=== PATIENT | female | born 1975 | race Caucasian/White ===

== ENCOUNTER 2016-09-29 11:40 | Emergency (ER) | payer OTHER ==
[~2016-09-29] VITALS: Ht 162.6 cm; Wt 52.6 kg
--- NOTE | ~2016-09-29 | EKG ---
PATIENT: MAYITO LOUIS UNIT #: [id number] Ventricular Rate: 215 BPM Atrial Rate: 208 BPM QRS Duration: 72 ms Q-T Interval: 218 ms QTC Calculation(Bezet): 412 ms Calculated R [place]: 105 degrees Calculated T [place]: 6 degrees Diagnosis Line: Supraventricular tachycardia Diagnosis Line: Rightward axis Diagnosis Line: Borderline ECG Diagnosis Line: When compared with ECG of 23-JAN-2016 16:23, Diagnosis Line: Vent. rate has increased BY 128 BPM Diagnosis Line: T wave amplitude has increased in Anterior leads Diagnosis Line: Confirmed by SHAMA MULLINS MD ([id number]) on 09/29/2016 Diagnosis Line: 7:47:18 PM INTERPRETING MD: SUSANNA LARSON
--- NOTE | ~2016-09-29 | HP ---
Unit #: [id number] #: [id number] Patient: MAYITO LOUIS [id number] [address] [address] [id number] MR#: [id number] NAME: MAYITO LOUIS ROOM: Age: 41 Sex: F Admission Date: 09/29/2016 : 1975 Attending Physician: Paolo Lilly M.D. Primary Care Physician: Toy Tran M.D. HISTORY AND PHYSICAL HISTORY OF PRESENT ILLNESS This is a 41-year-old white female who went to see her pain management doctor for an initial visit and was told that she had an elevated heart rate and blood pressure. She was not treated and was told to come to the emergency room for evaluation. In the emergency room, she was found to be in supraventricular tachycardia with a rate of 215 beats per minute. She was treated with adenosine 6 mg IV. Her blood pressure was initially elevated at 141/119 mmHg. The patient was aware of palpitations but had no dizziness or chest pain. She has not had any episodes of tachycardia in the past. She denies a history of hypertension, hyperlipidemia, or diabetes. She has had no prior cardiac history or testing. She has peripheral neuropathy that has not been controlled on gabapentin. She was hyperkalemic with a potassium level of 5.3. She denies a history of alcohol or illicit drug use. PAST MEDICAL HISTORY 1. Asthma. 2. Peripheral neuropathy. 3. Active smoker. PAST SURGICAL HISTORY Left hand surgery. SOCIAL HISTORY Patient is not employed. She lives with a boyfriend. She states she is reasonably active. She does have slight limitation because of her neuropathy. She smokes one pack of cigarettes daily. Denies illicit drug and alcohol use. FAMILY HISTORY Father from a stroke in his 70s. Mother has hypertension. ALLERGIES No known drug allergies. HOME MEDICATIONS 1. Gabapentin. 2. Flexeril. REVIEW OF SYSTEMS A 10-point review of systems is negative except for details stated in the HPI. PHYSICAL EXAMINATION Unit #: [id number] #: [id number] Patient: MAYITO LOUIS VITAL SIGNS: Blood pressure 126/93, heart rate 106, and temperature 98. BMI is 19. GENERAL: This is a thin, frail, 41-year-old white female who is in no acute respiratory distress. NEUROLOGIC: She is awake, alert, and oriented. There are no focal weaknesses. NECK: Trachea is midline. No thyromegaly or lymphadenopathy. No jugular venous distention. HEART: S1 and S2 heart sounds are normal. No murmurs, rubs, or clicks. Regular rate and rhythm. LUNGS: Clear without rales, rhonchi, or wheezes. ABDOMEN: Soft and nontender with bowel sounds present. EXTREMITIES: Without leg edema. SKIN: Warm and dry. DIAGNOSTIC STUDIES LABORATORY: Sodium 139, potassium 5.3, BUN 9, creatinine 0.9, and glucose 108. Beta hCG negative. Alcohol less than 5. Troponin less than 0.05 x2. Urine drug screen positive for TCA. White count 5.8, hemoglobin 15.6, hematocrit 46.1, and platelet count 313,000. CARDIOLOGY: EKG shows supraventricular tachycardia with a rate of 215 beats per minute with rightward axis deviation. Repeat EKG shows sinus tachycardia, rate of 135 beats per minute, with right axis deviation, right atrial enlargement, and coronary disease pattern. IMPRESSION 1. Paroxysmal supraventricular tachycardia converted to sinus tachycardia. 2. Nicotine abuse. 3. Likely chronic obstructive pulmonary disease. 4. History of asthma. 5. Peripheral neuropathy. 6. Hyperkalemia, resolved. PLAN 1. Cardiology was asked to see the patient in the emergency room because of paroxysmal supraventricular tachycardia. The patient now has sinus tachycardia after IV adenosine. Will start the patient on metoprolol 25 mg b.i.d. 2. TSH is pending. 3. Repeat potassium level is 4.4. 4. Will discharge the patient home today. Will follow up with Dr. Maciel on November 08 at 1:15 p.m. She will need an echocardiogram done at that time. 5. Follow up with Dr. Tran in one to two weeks. 1. Dictated by Ciro Dhillon A.P.R.N. for Traci Villeda TD: 09/29/2016 17:14 JOB #: [id number] Unit #: [id number] #: [id number] Patient: MAYITO LOUIS HISTORY AND PHYSICAL Page 1 of 1 X Ciro Dhillon APRN HISTORY AND PHYSICAL
--- NOTE | ~2016-09-29 | EKG ---
PATIENT: MAYITO LOUIS UNIT #: [id number] Ventricular Rate: 135 BPM Atrial Rate: 135 BPM P-R Interval: 140 ms QRS Duration: 80 ms Q-T Interval: 278 ms QTC Calculation(Bezet): 417 ms P [place]: 78 degrees Calculated R [place]: 109 degrees Calculated T [place]: 37 degrees Diagnosis Line: Sinus tachycardia Diagnosis Line: Right atrial enlargement Diagnosis Line: Rightward axis Diagnosis Line: Pulmonary disease pattern Diagnosis Line: Abnormal ECG Diagnosis Line: When compared with ECG of 29-SEP-2016 12:16, Diagnosis Line: (unconfirmed) Diagnosis Line: Vent. rate has decreased BY 80 BPM Diagnosis Line: Confirmed by SHAMA MULLINS MD ([id number]) on 09/29/2016 Diagnosis Line: 7:47:35 PM INTERPRETING MD: SUSANNA LARSON
[~2016-09-29 11:40] MED LIST: DARVOCET-N 1001 TAB PO; ERYTHROMYC3.5 GM OPT OD; FLEXERIL PO; FLEXERIL10 MG PO; KETOPROFEN PO; ORUDIS75 M1 PO; PREDNISONE PO; ROBAXIN500 MG PO; VOLTAREN75 MG PO; [UNRECOGNIZED DRUG - REMARK]
[2016-09-29 12:41] LABS: BASOPHIL% 0.5 % (0-2.5); DIFF IND NO; EOSINOPHIL# 0.1 X10e3 (0-0.7); EOSINOPHIL% 1.2 % (0.0-7.0); HEMATOCRIT 46.1 % (35.0-45.0); HEMOGLOBIN 15.6 gm/dL (12.0-16.0); LYMPHOCYTE# 1.6 X10e3 (1.0-3.5); LYMPHOCYTE% 26.8 % (17.0-45.0); MEAN CELL VOLUME 94.8 FL (83-96); MEAN CORPUSCULAR HEMOGLOBIN 32.1 PG (28-34); MEAN CORPUSCULAR HGB CONC 33.9 g/dL (30-36); MEAN PLATELET VOLUME 6.7 FL (6.5-11.5); MONOCYTE# 0.5 X10e3 (0-1.0); MONOCYTE% 8.4 % (3.0-12.0); NEUTROPHIL# 3.7 X10e3 (1.5-7.1); NEUTROPHIL% 63.1 % (40-75); PLATELET COUNT 313 X10e3 (140-420); RED BLOOD COUNT 4.86 X10e (3.90-5.30); RED CELL DISTRIBUTION WIDTH 14.6 % (11.0-15.5); WHITE BLOOD COUNT 5.8 X10e3 (4.0-10.5)
[2016-09-29 13:04] LABS: POC - CKMB 1.3 ng/mL (0.0-7.9); POC - TROPONIN <0.05 ng/mL (<=0.05)
[2016-09-29 13:05] LABS: ALBUMIN SERUM 4.1 g/dL (3.5-5.0); ALKALINE PHOSPHATASE 62 U/L (32-92); ALT (SGPT) 28 U/L (10-40); AST (SGOT) 22 U/L (10-42); BILIRUBIN, DIRECT 0.1 mg/dL (0.0-0.2); BILIRUBIN,INDIRECT 0.1 mg/dL (0.0-0.9); BILIRUBIN,TOTAL 0.2 mg/dL (0.2-2.0); BLOOD UREA NITROGEN 9 mg/dL (9-23); CARBON DIOXIDE 27 mmol/L (22-31); CHLORIDE 107 mmol/L (100-111); CREATININE SERUM 0.9 mg/dL (0.6-1.4); GLOM FILT RATE Estimated 78.4 mL/min (>60); GLUCOSE FASTING 108 mg/dL (70-110); POTASSIUM 5.3 mmol/L (3.5-5.1); PROTEIN TOTAL SERUM 7.1 g/dL (6.0-8.3); SODIUM 139 mmol/L (135-145)
[2016-09-29 13:05] LABS: URINE SOURCE CLEAN CATCH
[2016-09-29 13:07] LABS: ALCOHOL BLOOD <5 mg/dL (0)
[2016-09-29 13:22] LABS: URINE APPEARANCE CLEAR; URINE BILIRUBIN NEG (NEG); URINE BLOOD NEG (NEG); URINE COLOR STRAW; URINE GLUCOSE NORM (NORM); URINE KETONE NEG (NEG); URINE LEUKOCYTE ESTERASE NEG (NEG); URINE NITRATE NEG (NEG); URINE PROTEIN NEG (NEG); URINE SPECIFIC GRAVITY 1.005 (1.003-1.035); URINE UROBILINOGEN NORM (NORM)
[2016-09-29 13:25] LABS: AMPHETAMINE NEG (NEG); BARBITURATES NEG (NEG); BENZODIAZEPINES NEG (NEG); COCAINE NEG (NEG); MARIJUANA NEG (NEG); OPIATES NEG (NEG); TRICYCLIC ANTIDEPRESSANTS POS (NEG); U METHADONE NEG (NEG)
[2016-09-29 13:34] LABS: CULTURE INDICATED? NO
[2016-09-29 15:09] LABS: POC - CKMB <1.0 ng/mL (0.0-7.9); POC - TROPONIN <0.05 ng/mL (<=0.05)
[2016-09-29 17:22] LABS: THYROID STIMULATING HORMONE 0.35 uIU/ml (0.34-5.60)
[2016-09-29 17:29] LABS: FREE THYROXIN (T4) 0.87 ng/dL (0.58-1.64)
== END 2016-09-29 16:31 | disposition home or self-care (01) ==
LOC: CED 11:40
PROVIDERS: Emergency Medicine
DX: I47.1 Supraventricular tachycardia (principal); F17.200 Nicotine dependence, unspecified, uncomplicated
CPT/HCPCS: 36415; 80048; 80076; 80307; 81003; 82553; 84132; 84439; 84443; 84484; 84703; 85025; 93005; 96365; 99285; G0480; J0153